=== PATIENT | female | born 1975 | race Caucasian/White ===

== ENCOUNTER 2016-09-28 06:38 | Emergency (ER) | payer MEDICARE, MEDICAID ==
[2016-09-28] VITALS (7 sets, daily range): BP systolic 115–154; BP diastolic 49–98; PULSE 105–121; RESP 15–21; O2SAT 89–100
[~2016-09-28] VITALS: Ht 175.3 cm; Wt 72.7 kg
[~2016-09-28 06:38] MED LIST: ALBU18HF INHALATION; AMPH20TA5 PO; BUSP30TA2 PO; CHOL100045 PO; IBUP-1827 PO; LEVO137T2 PO; LORA2TAB PO; MONT10TA20 PO; OMEP20CA11 PO; PRE20 PO; VENL75CA95 PO
--- NOTE | 2016-09-28 06:43 | ED.REPORT ---
HPI-Dyspnea / Wheezing Date of Service Sep 28, 2016 ED Provider: Dr. Corea Pt is a 41 year old female with a hx of asthma and prior intubation presenting to the ED via EMS complaining of SOB in respiratory distress onset this morning. Associated symptoms include a productive cough. She denies fever or recent sickness. The pt reports that her daughter is currently sick. Per EMS the pt took 2 Duonebs this morning and an O2 compressor with no improvement. Nursing Notes Stated Complaint: ASTHMA EXACERBATION Chief Complaint: Respiratory Distress Nursing Notes Reviewed: Yes ([employer] not reconciled) Allergies: Coded Allergies: morphine (Verified Allergy, Severe, anaphylaxsis, 09/28/16) intubated due to reaction 04/03/16 aspirin (Verified Adverse Reaction, Severe, GI UPSET, 09/28/16) codeine (Verified Adverse Reaction, Severe, N/V, 09/28/16) Uncoded Allergies: NITRO PASTE (Allergy, Unknown, UNKNOWN, 05/20/16) Scheduled Amphet Asp/Amphet/D-Amphet (Adderall) 20 Mg Tablet 20 MG PO TID Buspirone (Buspirone) 30 Mg Tablet 30 MG PO BID Cholecalciferol (Vitamin D3) (Vitamin D) 1,000 Unit Capsule 2,000 UNIT PO DAILY Levothyroxine (Levothyroxine) 137 Mcg Tablet 137 MCG PO DAILY Montelukast (Singulair) 10 Mg Tablet 10 MG PO HS Omeprazole (Omeprazole) 20 Mg Capsule.dr 20 MG PO DAILY Prednisone (PredniSONE) 20 Mg Tablet 10 MG PO DAILY TAPERING DOSES Prednisone (PredniSONE) 20 Mg Tablet 60 MG PO DAILY Venlafaxine ER (Venlafaxine ER) 75 Mg Cap.er.24h 225 MG PO DAILY Scheduled PRN Albuterol HFA (Proair HFA) 8.5 Gm Hfa.aer.ad 2 PUFFS INHALATION Q4H PRN PRN For Shortness of Breath Albuterol Sulfate (Ventolin HFA Inhaler) 200 Puff/18 Gm Inhaler 2 PUFFS INHALATION Q4H PRN PRN For Shortness of Breath Ibuprofen (Ibuprofen) 600 Mg Tablet 600 MG PO QID PRN PRN For Pain Lorazepam (Lorazepam) 2 Mg Tablet 2 MG PO BID PRN PRN For Insomnia General Time Seen by MD: 06:42 Chief Complaint Shortness of breath Hx Obtained From: Patient, EMS Arrived By: Ambulance Sudden in Onset?: Yes Onset Occurred: Just prior to arrival Context of Onset: Asthma attack Symptom Duration: Since onset Severity: Current: No pain currently Severity: Maximum: No pain Recent Healthcare: No recent doctor visit, No recent hospitalization Similar Sx Previous: Yes Past Medical History Past Medical History Notes: PCP: Dr. Wells Admitted R 28 through 04/09/2016 for acute respiratory failure requiring intubation, asthma exacerbation Past Medical History Asthma Chronic tobacco use Depression and PTSD Chronic pain syndrome with chronic narcotic habituation GERD Anxiety Possible ADD on Adderall PTSD Hemorrhoids Reports: Hypertension Reports: Thyroid disease (hypothyroidism) Past Surgical History Appendectomy Dental extraction Reports: Appendectomy Family History Noncontributory Smoking History Current Every Day Smoker Social History Alcohol Use: Denies alcohol use Drug Use: Denies drug use Other Social History: Local resident Ambulatory Status Independent Review of Systems Constitutional: Denies: Fever Respiratory: Reports: Prod cough, clear, Shortness of breath Complete sys rev & neg: except as marked. GI: Denies: Nausea, Vomiting Physical Exam Initial Vital Signs Vital Signs (First) Date Time Temp Pulse Resp B/P Pulse Ox O2 Delivery O2 Flow Rate FiO2 09/28/16 06:50 36.6 121 19 154/98 99 7 09/28/16 06:55 Aerosol Mask Initial VS: Reviewed, Unavailable (none on chart) Head / Eyes: Atraumatic, Normocephalic, PERRL ENT: Mucous membranes moist, Conjunctiva normal, No scleral icterus Abdomen / GI: Soft, Non-tender, No guarding, No rebound, No distention Extremities: Vascular intact, Neuro intact, No swelling, No tenderness Skin: Warm, Dry, No cyanosis Neurologic: Alert, Oriented, Nonfocal Psychiatric: Mood/affect normal, Behavior normal, Normal thought content General/Constitutional: Awake, Alert Neck: Atraumatic, Supple Respiratory / Chest: Atraumatic, No chest tenderness Resp Distress / Stridor: Positive: Resp distress severe Wheezing / Retractions: Positive: Wheezing moderate (Wheezing in all morris) Improved compared to initial reports of EMS. Interpretation & Diagnostics Lab Results Interpretation Test 09/28/16 09:40 Hold Urine Received (Received) Re-Eval/Medical Decision Med Decision/Clinical Course This is a 41-year-old female with asthma developed shortness of breath typical for asthma and this morning. Increasingly worse, when the medics were called. She has required intubation times one in the past. On EMS arrival was hypoxic, bronchospastic, and in severe respiratory distress. Patient received nebulizers en route. She arrives still in respiratory distress, but improving. She denies fever cough or antecedent illness. She is not certain of any trigger. She does not she is post me using a Flovent inhaler daily, but often forgets Exam she is bronchospastic, in severe distress-but she responded well to multiple albuterol Atrovent nebs in the department. She received Solu-Medrol, magnesium, and is much improved. Her distress over time completely resolved. She still has mild bronchospasm, but is all distress is resolved, and she would like to go home. I do not think that is unreasonable. Given the absence of fever, or other provocative features-laboratory testing is not performed at her request. The plan is to discharge on a 5 day course prednisone, I reviewed refills of her albuterol inhaler (she is not out, but will be soon). Patient is also advised to Source of Hx: Old records Re-Evaluation/Progress #1: Time of Eval: 07:16 Patient Status: Condition improved Re-Evaluation/Progress Note: Pt's work of breathing is greatly improved. Re-Evaluation/Progress #2: Time of Eval: 08:06 Patient Status: Condition improved Re-Evaluation/Progress Note: Pt sleeping comfortably. Still wheezing but pt is doing much better. Re-Evaluation/Progress #3: Time of Eval: 09:48 Patient Status: Condition improved Re-Evaluation/Progress Note: No wheezing. Pt resting comfortably. Pt feels ready to go home. Re-Evaluation/Progress #4: Patient Status: Condition improved Re-Evaluation/Progress Note: Pt is sleeping and her oxygen levels are high. Counseled Regarding: Diagnosis, Lab results, Need for follow-up, When/why to return to ED Discharge & Departure Impression: Primary Impression: Asthma with acute exacerbation Asthma severity: mild persistent Qualified Code: J45.31 - Mild persistent asthma with (acute) exacerbation Disposition: Home Discharge Condition All VS Reviewed: Yes Condition: Improved Additional Instructions: 1. Take prednisone 60mg once a day for five more days. 2. Continue your albuterol inhaler 3. Try to remember to use your steroid inhaler (Flovent) daily - this works to help prevent flairs 4. Return again if new, worsening, or uncontrolled symptoms Referrals: Manasa Wells MD (PCP) Crit Care Except Billable Proc Time Spent: 30-74 minutes Services Performed: Patient management by me, Time spent at bedside, Reviewing test results, Reviewing imaging, Discussing patient care, Documentation in record Scribe Attestation Portions of this note were transcribed by Louie Dawson. I, Dr. Corea personally performed the history, physical exam and medical decision-making; I reviewed and confirmed the accuracy of the information in the transcribed note. Signed by: Carmelina Cartagena, 28/09/2016 and 1046. copies to: Manasa Wells MD, Matthew F MD Sep 28, 2016 06:43 LOUIE DAWSON Sep 28, 2016 06:51
[2016-09-28] MEDS ORDERED: Albuterol 2.5 mg/3 mL Inhalation Solution NEB ONE ×3 (06:44→08:10)
[2016-09-28] MEDS ORDERED: MethylprednisoLONE Sodium Succinate 62.5 mg/mL 2 mL Inj IVPUSH ONE (06:50)
[2016-09-28] MEDS ORDERED: Magnesium Sulf 2 Gm/50mL Water 2 GM in IV Premix 1 EACH IV ONE (06:50)
[2016-09-28] MEDS ORDERED: 0.9% Sodium Chloride 1,000 ML IV ONE (06:55)
[2016-09-28] MEDS ORDERED: PRE20 PO (10:02)
[2016-09-28] MEDS ORDERED: ALBU8.5H2 INHALATION (10:02)
== END 2016-09-28 10:54 | disposition home or self-care (01) ==
LOC: SED 06:38 → EDBD 06:38 → SED 10:54
DX: J45.31 Mild persistent asthma with (acute) exacerbation (principal); R06.02 Shortness of breath; K21.9 Gastro-esophageal reflux disease without esophagitis; I10 Essential (primary) hypertension; E03.9 Hypothyroidism, unspecified; F17.200 Nicotine dependence, unspecified, uncomplicated; Z88.5 Allergy status to narcotic agent; Z88.6 Allergy status to analgesic agent
CPT/HCPCS: 81025; 94644; 96361; 96365; 96375; 99291; J2060; J2930; J7030; J7613